=== PATIENT | female | born 1960 ===

== ENCOUNTER → 2021-05-08 12:50 | Outpatient (ROUT) | payer MEDICARE, SELFPAY ==
[2021-05-08 12:58] LABS: Add Manual Diff / Slide Review NO; Basophils Absolute Auto 0 /uL (0-100); Basophils Percent Auto 0.2 % (0-2); Eosinophils Absolute Auto 0 /uL (0-450); Eosinophils Percent Auto 0.3 % (2-4); Hematocrit 24.4 % (36-46); Hemoglobin 8.1 g/dL (12.0-16.0); Lymphocytes Absolute Auto 1400 /uL (1100-4500); Lymphocytes Percent Auto 21.3 % (25-40); Mean Corpuscular HGB Conc 33.1 % (30-36); Mean Corpuscular Hemoglobin 33.7 PG (26-34); Mean Corpuscular Volume 101.6 fL (80-100); Monocytes Absolute Auto 500 /uL (0-900); Monocytes Percent Auto 8.1 % (3-14); Neutrophils Absolute Auto 4500 /uL (1500-7000); Neutrophils Percent Auto 70.1 % (50-75); Platelet Count 67 X10^3/uL (150-400); Red Blood Cell Count 2.41 X10^6/uL (4.0-5.2); Red Cell Distribution Width 24.7 % (11.6-14.8); White Blood Cell Count 6.4 X10^3/uL (4.5-11.0)
[2021-05-08 13:04] LABS: Alanine Aminotransferase 40 IU/L (<35); Albumin 2.1 g/dL (3.5-5.0); Albumin Globulin Ratio 1.1 (1.0-2.8); Alkaline Phosphatase 140 U/L (38-126); Aspartate Aminotransferase 68 IU/L (14-36); BUN Creatinine Ratio 29.5 (6-22); Bilirubin Total 2.5 mg/dL (0.2-1.3); Blood Urea Nitrogen 13 mg/dL (7-17); Calcium 8.1 mg/dL (8.4-10.2); Carbon Dioxide 38 mmol/L (22-32); Chloride 92 mmol/L (98-107); Estimated Glomerular Filt Rate > 60.0 mL/min (>60); Glucose 147 mg/dL (80-110); HEMOLYSIS < 15 (0-50); Magnesium 1.4 mg/dL (1.6-2.3); Phosphorous 1.2 mg/dL (2.8-4.1); Sodium 132 mmol/L (137-145); Total Protein 4.1 g/dL (6.3-8.2)
[2021-05-08 13:22] LABS: Anisocytosis 2+
[2021-05-08 13:23] LABS: Tear Drop Cells 1+
[2021-05-08 15:58] LABS: Potassium 2.6 mmol/L (3.4-5.1)
== END ==
PROVIDERS: Visit Provider Internal Medicine Hematology & Oncology
DX: C85.90 Non-Hodgkin lymphoma, unspecified, unspecified site (principal); E87.6 Hypokalemia
CPT/HCPCS: 80053; 83735; 84100; 85025

== ENCOUNTER → 2021-05-12 10:43 | Outpatient (ROUT) | payer MEDICARE, SELFPAY ==
[2021-05-12 10:57] LABS: Add Manual Diff / Slide Review NO; Basophils Absolute Auto 0 /uL (0-100); Basophils Percent Auto 0.3 % (0-2); Eosinophils Absolute Auto 0 /uL (0-450); Eosinophils Percent Auto 0.2 % (2-4); Hematocrit 23.2 % (36-46); Hemoglobin 7.5 g/dL (12.0-16.0); Lymphocytes Absolute Auto 1000 /uL (1100-4500); Lymphocytes Percent Auto 13.8 % (25-40); Mean Corpuscular HGB Conc 32.4 % (30-36); Mean Corpuscular Hemoglobin 34.6 PG (26-34); Mean Corpuscular Volume 106.7 fL (80-100); Monocytes Absolute Auto 500 /uL (0-900); Monocytes Percent Auto 6.5 % (3-14); Neutrophils Absolute Auto 5500 /uL (1500-7000); Neutrophils Percent Auto 79.2 % (50-75); Platelet Count 53 X10^3/uL (150-400); Red Blood Cell Count 2.18 X10^6/uL (4.0-5.2); Red Cell Distribution Width 26.1 % (11.6-14.8)
[2021-05-12 12:31] LABS: Alanine Aminotransferase 57 IU/L (<35); Albumin Globulin Ratio 1.1 (1.0-2.8); Alkaline Phosphatase 139 U/L (38-126); Aspartate Aminotransferase 79 IU/L (14-36); BUN Creatinine Ratio 48.8 (6-22); Bilirubin Total 1.9 mg/dL (0.2-1.3); Blood Urea Nitrogen 20 mg/dL (7-17); Carbon Dioxide 35 mmol/L (22-32); Chloride 96 mmol/L (98-107); Estimated Glomerular Filt Rate > 60.0 mL/min (>60); Globulin 1.9 g/dL (1.7-4.1); Glucose 185 mg/dL (80-110); HEMOLYSIS < 15 (0-50); Magnesium 1.6 mg/dL (1.6-2.3); Phosphorous 2.1 mg/dL (2.8-4.1); Potassium 3.9 mmol/L (3.4-5.1); Sodium 131 mmol/L (137-145); Total Protein 3.9 g/dL (6.3-8.2)
[2021-05-12 13:07] LABS: Nucleated Red Blood Cells 1 #/Diff
[2021-05-12 13:12] LABS: Macrocytosis 2+; Poikilocytosis 1+; Polychromasia 1+; Target Cells 1+
== END ==
PROVIDERS: Visit Provider Internal Medicine Hematology & Oncology
DX: C85.90 Non-Hodgkin lymphoma, unspecified, unspecified site (principal); E87.6 Hypokalemia
CPT/HCPCS: 80053; 83735; 84100; 85025